=== PATIENT | female | born 1990 ===

== ENCOUNTER 2017-11-30 14:45 | Emergency (ER) | payer OTHER ==
[2017-11-30 15:05] VITALS: BP 142/94; PULSE 98; RESP 18; TEMP 98.6; O2SAT 100
--- NOTE | 2017-11-30 15:31 | ED PDOC ---
HPI: Allergic Reaction Time Seen by Provider: 11/30/17 15:40 Chief Complaint (Nursing): Allergic Reaction Chief Complaint (Provider): Rash History Per: Patient History/Exam Limitations: no limitations Onset/Duration Of Symptoms: Days (2) Additional Complaint(s): Patient is a 27 y/o female with no significant past medical history presenting to the emergency department for a body rash since last night. Reports that the itchy feeling has been getting worse since yesterday and states that a diffuse rash appeared today. Notes that the rash may be the result of an exposure at work. Denies consuming new food or using new lotions and soaps, or using medication to relieve the rash, denies tongue or facial swelling, and denies any other complaints. PCP: none provided. Past Medical History Reviewed: Historical Data, Nursing Documentation, Vital Signs Vital Signs: Last Vital Signs Temp 98.6 F 11/30/17 15:14 Pulse 98 H 11/30/17 15:14 Resp 18 11/30/17 15:14 BP 142/94 H 11/30/17 15:14 Pulse Ox 100 11/30/17 15:14 - Medical History PMH: No Chronic Diseases - Family History Family History: States: No Known Family Hx - Home Medications Home Medications: Ambulatory Orders Medication Instructions Recorded DiphenhydrAMINE [Benadryl] 50 mg PO TID #20 cap 11/30/17 Famotidine [Pepcid] 40 mg PO DAILY #20 tablet 11/30/17 predniSONE [predniSONE Tab] 40 mg PO DAILY #8 tab 11/30/17 - Allergies Allergies/Adverse Reactions: Allergies Allergy/AdvReac Type Severity Reaction Status Date / Time aspirin Allergy SWELLING Verified 11/30/17 15:02 Review of Systems ROS Statement: Except As Marked, All Systems Reviewed And Found Negative ENT: Negative for: Throat Swelling (tongue or facial) Skin: Positive for: Rash (itchty, diffuse) Physical Exam - Reviewed Nursing Documentation Reviewed: Yes Vital Signs Reviewed: Yes - Physical Exam Extremity: Positive for: Pedal Edema Comments: GENERAL APPEARANCE: Patient is awake, alert, oriented x 3, in no acute distress. SKIN: Warm, dry; diffuse, erythematous, scattered rash to trunks and extremities sparing palms and soles (-) cyanosis. HEAD: (-) scalp swelling, (-) scalp tenderness. EYES: (-) conjunctival pallor, (-) scleral icterus, (-) nystagmus. ENMT: Mucous membranes moist. Airway patent: (-) stridor. NECK: (-) tenderness, (-) stiffness, (-) lymphadenopathy. CHEST AND RESPIRATORY: (-) rales, (-) rhonchi, (-) wheezes; breath sounds equal. ABDOMEN AND GI: Soft; (-) tenderness. EXTREMITIES: (-) deformity, (-) edema. NEURO AND PSYCH: Mental status as above; (-) focal findings. - ECG O2 Sat by Pulse Oximetry: 100 (RA) Pulse Ox Interpretation: Normal Disposition - Clinical Impression Clinical Impression: Allergic reaction, Rash - Patient ED Disposition Is Patient to be Admitted: No Counseled Patient/Family Regarding: Diagnosis, Need For Followup, Rx Given - Disposition Referrals: [facility] [Outside] Disposition: Routine/Home Disposition Time: 15:51 Condition: STABLE Additional Instructions: Thank you for letting us take care of you today. You were treated for rash, allergic reaction. The emergency medical care you received today was directed at your acute symptoms. If you were prescribed any medication, please fill it and take as directed. It may take several days for your symptoms to resolve. Return to the Emergency Department if your symptoms worsen, do not improve, or if you have any other problems. Please call one of the physicians/clinics you have been referred to that are listed on the Patient Visit Information form that is included in your discharge packet. Bring any paperwork you were given at discharge with you along with any medications you are taking to your follow up visit. Our treatment cannot replace ongoing medical care by a primary care provider (PCP) outside of the emergency department. [facility] care [facility]. Prescriptions: DiphenhydrAMINE [Benadryl] 50 mg PO TID #20 cap Famotidine [Pepcid] 40 mg PO DAILY #20 tablet predniSONE [predniSONE Tab] 40 mg PO DAILY #8 tab Instructions: Acute Rash (ED), General Allergic Reaction (ED) Forms: [email or web address] (Tajik), [facility] ED School/Work Excuse Print Language: SLOVAK Medical Decision Making Medical Decision Making: Time: 15:49 Initial impression: Generalized body rash Initial plan: Benadryl 50 mg IM Pepcid 40 mg PO Prednisone 40 mg PO Reevaluation 15:51 On reevaluation, patient sitting comfortably in no acute distress, reports improvement of itchiness. Breathing Easy and unlabored, speaking in full sentences. Patient is stable for discharge. Advised to follow up with the clinic in 1-2 days without fail. Advised to take medication as prescribed. Return to the emergency room at any time for any new or worsening symptoms. Patient states she fully agrees with and understands discharge instructions. States that she agrees with the plan and disposition. Verbalized and repeated discharge instructions and plan. I have given the patient opportunity to ask any additional questions. ~ Scribe Attestation: Documented by Colleen Renae, acting as a scribe for MONICA Alex. Provider Scribe Attestation: All medical record entries made by the Scribe were at my direction and personally dictated by me. I have reviewed the chart and agree that the record accurately reflects my personal performance of the history, physical exam, medical decision making, and the department course for this patient. I have also personally directed, reviewed, and agree with the discharge instructions and disposition.
[2017-11-30] MEDS ORDERED: DiphenhydrAMINE 50 mg/ml Inj IM STA (15:49)
[2017-11-30] MEDS ORDERED: DiphenhydrAMINE 50 mg/ml Inj ONE (16:10)
== END 2017-11-30 16:29 | disposition home or self-care (01) ==
LOC: H.ER 14:45
DX: T78.40XA Allergy, unspecified, initial encounter (principal)
CPT/HCPCS: 96372; 99282; J1200

== ENCOUNTER 2017-12-07 16:38 | Emergency (ER) | payer OTHER ==
[2017-12-07 16:48] VITALS: BP 163/93; PULSE 90; RESP 16; TEMP 98.2; O2SAT 100
--- NOTE | 2017-12-07 19:07 | ED PDOC ---
HPI: General Adult Time Seen by Provider: 12/07/17 17:55 Chief Complaint (Nursing): Chest Pain Chief Complaint (Provider): Chest Pain, Anxiety History Per: Patient, Family History/Exam Limitations: no limitations Onset/Duration Of Symptoms: Intermittent Episodes Current Symptoms Are (Timing): Gone Now Recently: Seen In ED Additional Complaint(s): 27 year old female presents to the ED complaining that for the past week shes had intermittent episodes where she feels hot and develops a rash. Seen in ED and given Benadryl with moderate improvement. States now when she gets symptoms she begins to feel anxious as well. Yesterday she developed symptoms and shortly after she experienced mid-sternal chest pain. She then checked blood pressure at pharmacy, and it was 140/92 which caused her to feel more anxious. Currently without any symptoms. Denies any fever, rash, shortness of breath, throat swelling, or palpitations. PMD: None Past Medical History Reviewed: Historical Data, Nursing Documentation, Vital Signs Vital Signs: Last Vital Signs Temp 98.2 F 12/07/17 16:48 Pulse 90 12/07/17 16:48 Resp 16 12/07/17 16:48 BP 163/93 H 12/07/17 16:48 Pulse Ox 100 12/07/17 20:56 - Medical History PMH: No Chronic Diseases - Family History Family History: States: No Known Family Hx Denies: PR - Social History Current smoker - smoking cessation education provided: No Alcohol: None Drugs: Denies - Home Medications Home Medications: Ambulatory Orders Medication Instructions Recorded DiphenhydrAMINE [Benadryl] 50 mg PO TID #20 cap 11/30/17 Famotidine [Pepcid] 40 mg PO DAILY #20 tablet 11/30/17 predniSONE [predniSONE Tab] 40 mg PO DAILY #8 tab 11/30/17 - Allergies Allergies/Adverse Reactions: Allergies Allergy/AdvReac Type Severity Reaction Status Date / Time aspirin Allergy SWELLING Verified 11/30/17 15:02 Review of Systems ROS Statement: Except As Marked, All Systems Reviewed And Found Negative Constitutional: Negative for: Fever ENT: Negative for: Throat Swelling Cardiovascular: Positive for: Chest Pain (intermittent). Negative for: Palpitations Respiratory: Negative for: Shortness of Breath Skin: Negative for: Rash Psych: Positive for: Anxiety (with episodes of feeling warm + rash) Physical Exam - Reviewed Nursing Documentation Reviewed: Yes Vital Signs Reviewed: Yes - Physical Exam Appears: Positive for: Non-toxic, No Acute Distress Head Exam: Positive for: ATRAUMATIC, NORMOCEPHALIC Skin: Positive for: Normal Color, Warm, Dry. Negative for: Diaphoresis, Rash Eye Exam: Positive for: EOMI, Normal appearance, PERRL ENT: Positive for: Normal ENT Inspection Neck: Positive for: Normal, Painless ROM Cardiovascular/Chest: Positive for: Regular Rate, Rhythm. Negative for: Murmur Respiratory: Positive for: Normal Breath Sounds. Negative for: Accessory Muscle Use, Respiratory Distress Gastrointestinal/Abdominal: Positive for: Normal Exam, Soft. Negative for: Tenderness Back: Positive for: Normal Inspection. Negative for: Vertebral Tenderness Extremity: Positive for: Normal ROM. Negative for: Pedal Edema, Deformity Neurologic/Psych: Positive for: Alert, Oriented (x3). Negative for: Motor/ Sensory Deficits - Laboratory Results Result Diagrams: 12/07/17 19:10 12/07/17 19:10 - ECG ECG: Positive for: Interpreted By Sc ECG Rhythm: Positive for: Sinus Rhythm. Negative for: ST/T Changes O2 Sat by Pulse Oximetry: 100 (RA) Pulse Ox Interpretation: Normal - Radiology X-Ray: Interpreted by Sc, Viewed By Sc X-Ray Interpretation: No Acute Disease - Progress ED Course And Treament: On re-evaluation, pt. in no distress. Reports no episodes while in ED. Denies SI/HI, hallucinations. Medical Decision Making Medical Decision Making: Time: 18:24 Initial Plan: --CMP --Troponin I --CBC w/ differential --Urine test --EKG --Chest X-Ray, PA&LAT --Reevaluation Labs reviewed: Overall normal. Troponin is negative. Patient stable for discharge home. Counseling was provided and all questions were answered regarding diagnosis and need for follow up with the clinic. There is agreement to discharge plan. Return if symptoms persist or worsen. Scribe Attestation: Documented by Jennifer Marroquin, acting as a scribe for Massimo Turner PA-C Provider Scribe Attestation: All medical record entries made by the Scribe were at my direction and personally dictated by me. I have reviewed the chart and agree that the record accurately reflects my personal performance of the history, physical exam, medical decision making, and the department course for this patient. I have also personally directed, reviewed, and agree with the discharge instructions and disposition. Disposition - Clinical Impression Clinical Impression: Anxiety - Patient ED Disposition Is Patient to be Admitted: No - Disposition Referrals: [facility] [Outside] Disposition: Routine/Home Disposition Time: 20:48 Condition: STABLE Instructions: Anxiety (ED) Forms: [employer] (Russian) Print Language: MACANESE
[2017-12-07 19:34] LABS: BASO % 0.8 % (0.0-2.0); MEAN CELL VOLUME 95.2 fl (81.0-99.0); MEAN CORPUSCULAR HGB CONC 32.2 g/dL (33.0-37.0); NRBC % 0.1 % (0.0-0.0); WHITE BLOOD COUNT 5.3 K/uL (4.8-10.8)
[2017-12-07 19:45] LABS: EOS % 0.7 % (0.0-4.0); HEMOGLOBIN 14.1 g/dL (12.0-16.0); LYMPH # 2.4 K/uL (1.0-4.3); LYMPH % 44.9 % (20.0-40.0); MEAN CORPUSCULAR HEMOGLOBIN 30.6 pg (27.0-31.0); MEAN PLATELET VOLUME 10.5 fl (7.2-11.7); MONO # 0.5 K/uL (0.0-0.8); MONO % 10.3 % (0.0-10.0); NEUT # 2.3 K/uL (1.8-7.0); NEUT % 43.3 % (50.0-75.0); RBC 4.61 Mil/uL (3.80-5.20); RED CELL DISTRIBUTION WIDTH 14.1 % (11.5-14.5)
[2017-12-07 19:51] LABS: ALB/GLOB RATIO 1.4 (1.0-2.1); ALBUMIN 4.4 g/dL (3.5-5.0); ALT/SGPT 60 U/L (9-52); AST/SGOT 25 U/L (14-36); BLOOD UREA NITROGEN 12 mg/dl (7-17); CALCIUM 9.4 mg/dL (8.4-10.2); GFR AFRICAN-AMERICAN > 60; GFR NON-AFRICAN AMERICAN > 60
--- NOTE | 2017-12-08 09:09 | RAD ---
HISTORY: chest pain COMPARISON: No prior. TECHNIQUE: Chest PA and lateral FINDINGS: LUNGS: No active pulmonary disease. PLEURA: No significant pleural effusion identified. No pneumothorax apparent. CARDIOVASCULAR: Normal. OSSEOUS STRUCTURES: No significant abnormalities. VISUALIZED UPPER ABDOMEN: Normal. OTHER FINDINGS: None. IMPRESSION: No active disease.
--- NOTE | 2017-12-08 11:23 | CARD ---
APPROVED REPORT EKG Measurement Heart [id number] <Conclusion> Normal sinus rhythm Normal ECG
== END 2017-12-07 21:27 | disposition home or self-care (01) ==
LOC: H.ER 16:38
DX: F41.9 Anxiety disorder, unspecified (principal)